=== PATIENT | female | born 1940 | race Caucasian/White ===

== ENCOUNTER → 2018-10-04 | Outpatient (CLI) | payer MEDICARE, OTHER ==
[~2018-10-04] MED LIST: ASPIR 8181 M1 PO; ATORVASTATIN CA40 MG PO; BRILINTA90 MG PO; COREG6.25 MG PO; LISINOPRIL2.5 MG PO; NEURONTIN 300300 M1 PO; TRAZODONE 150150 M1 PO
--- NOTE | 2018-10-04 17:15 | 2DMMODE ---
[place] [address] 2 D/M-MODE ECHOCARDIOGRAM Name: ALISSON WARNER Room: [facility]#: [id number] Admission: 10/04/18 Attend Phys: Rad Robertson, Discharge: Date of : 40 Date of Service: 10/04/18 1715 Report #: [id number] THIS REPORT FOR: //name// APPROVED REPORT Study performed: 10/04/2018 09:56:37 EXAM: Comprehensive 2D, Doppler, and color-flow Echocardiogram Patient Location: Out-Patient Status: routine BSA: 1.64 HR: 86 bpm BP: 140/382 mmHg Rhythm: NSR Other Information Study Quality: Good Indications Cardiomyopathy 2D Dimensions IVSd: 11.24 (7-11mm) LVOT Diam: 20.31 (18-24mm) LVDd: 43.88 mm PWd: 10.40 (7-11mm) Ascending Ao: 25.05 (22-36mm) LVDs: 37.72 (25-40mm) Aortic Root: 24.62 mm Volumes Left Atrial Volume (Systole) LA ESV Index: 21.30 mL/m2 Aortic Valve AoV Peak Lázaro.: 0.92 m/s AO Peak Gr.: 3.36 mmHg LVOT Max P.34 mmHg AO Mean Gr.: 1.97 mmHg LVOT Mean P.10 mmHg LVOT Max V: 0.76 m/s AO V2 VTI: 17.55 cm LVOT Mean V: 0.48 m/s ALEXEY (VTI): 2.65 cm2 LVOT V1 VTI: 14.38 cm AI [place]: 2.46 m/s2 AI PHT: 456.40 ms Mitral Valve E/A Ratio: 0.95 [place] [address] 2 D/M-MODE ECHOCARDIOGRAM Name: ALISSON WARNER Room: [facility]#: [id number] Admission: 10/04/18 Attend Phys: Rad Robertson, Discharge: Date of : 40 Date of Service: 10/04/18 1715 Report #: [id number] MV Decel. Time: 171.97 ms MV E Max Lázaro.: 0.58 m/s MV PHT: 49.87 ms MVA (PHT): 4.41 cm2 TDI E/Lateral E': 9.67 E/Medial E': 9.67 Medial E' Lázaro.: 0.06 m/s Lateral E' Lázaro.: 0.06 m/s Pulmonary Valve PV Peak Lázaro.: 0.80 m/s PV Peak Gr.: 2.56 mmHg Tricuspid Valve RAP Estimate: 5.00 mmHg TR Peak Gr.: 30.16 mmHg RVSP: 35.00 mmHg PA Pressure: 35.00 mmHg Left Ventricle The left ventricle is normal size. There is akinesis of the mid to apical anterior anteroseptal and apical william. There is normal left ventricular wall thickness. Left ventricular systolic function is moderately decreased. LVEF is 35-40%. Grade I - abnormal relaxation pattern. Right Ventricle The right ventricle is normal size. The right ventricular systolic function is normal. Atria The left atrium size is normal. The right atrium size is normal. Aortic Valve The aortic valve is normal in structure. Moderate aortic regurgitation. There is no aortic valvular stenosis. Mitral Valve The mitral valve is normal in structure. Mild mitral regurgitation. No evidence of mitral valve stenosis. Tricuspid Valve The tricuspid valve is normal in structure. There is no tricuspid valve regurgitation noted[place] [address] 2 D/M-MODE ECHOCARDIOGRAM Name: ALISSON WARNER Room: [facility]#: [id number] Admission: 10/04/18 Attend Phys: Rad Robertson, Discharge: Date of : 40 Date of Service: 10/04/18 1715 Report #: [id number] The pulmonary valve is normal in structure. There is no pulmonic valvular regurgitation. Great Vessels The aortic root is normal in size. IVC is normal in size and collapses >50% with inspiration. Pericardium There is no pericardial effusion. <Conclusion> The left ventricle is normal size. There is normal left ventricular wall thickness. Left ventricular systolic function is moderately decreased. LVEF is 35-40%. Grade I - abnormal relaxation pattern. There is akinesis of the mid to apical anterior anteroseptal and apical william. Moderate aortic regurgitation. Mild mitral regurgitation. IVC is normal in size and collapses >50% with inspiration. <ELECTRONICALLY SIGNED> By: Rad Robertson MD, [facility] 10/04/181714 14 14 Rad Robertson MD, FACC /INF
== END ==
LOC: M.CRD 09:48
DX: I08.0 Rheumatic disorders of both mitral and aortic valves (principal); I25.5 Ischemic cardiomyopathy; Z88.8 Allergy status to other drugs, medicaments and biological substances; Z88.0 Allergy status to penicillin; Z88.2 Allergy status to sulfonamides

== ENCOUNTER 2020-06-19 08:57 | Observation (INO) | payer MEDICARE, OTHER ==
[2020-06-19] VITALS (15 sets, daily range): BP systolic 141–178; BP diastolic 62–88
[~2020-06-19] VITALS: Ht 167.6 cm; Wt 58.5 kg
--- NOTE | ~2020-06-19 | H ---
[address] [address] HISTORY AND PHYSICAL Name: ALISSON WARNER Room: [address] Jung M.RAshli#: [id number] Admission: 06/19/20 Attend Phys: Rad Robertson MD Discharge: 06/20/20 Date of : 40 Report #: [id number] THIS REPORT FOR: //name// cc: Toño Nation MD, Bruce D. MD ~ Please refer to the History and Physical performed in the physician's office. By: [id number] Records Staff [facility] /KULDEEP
[2020-06-19 09:59] LABS: HEMATOCRIT 43.2 % (37.0-47.0); HEMOGLOBIN 14.5 gm/dL (12.0-15.0); MCH 30.4 pg (26.0-34.0); MCHC 33.5 g/dL (28.0-37.0); MCV 90.5 fL (80.0-100.0); MPV 8.3 fl. (7.2-11.1); RBC 4.78 mil/uL (4.20-5.00); RDW-CV 13.6 % (10.5-14.5); WBC 4.7 thou/uL (4.0-11.0)
[2020-06-19 10:04] LABS: ANION GAP 5 mmol/L (7-16); BUN 15 mg/dL (7-18); CALCIUM 8.8 mg/dL (8.5-10.1); CHLORIDE 101 mmol/L (98-107); CO2 32 mmol/L (21-32); CREATININE 0.8 mg/dL (0.6-1.3); GLUCOSE 103 mg/dL (70-99); POTASSIUM 3.7 mmol/L (3.5-5.1); SODIUM 138 mmol/L (136-145)
[2020-06-19 10:08] LABS: ALBUMIN 3.8 g/dL (3.4-5.0); ALKALINE PHOSPHATASE 99 U/L (46-116); CHOLESTEROL 184 mg/dL (<200); HDL CHOLESTEROL 57 mg/dL (>40); LDL CHOLESTEROL 115 mg/dL (<100); SGOT 24 U/L (15-37); SGPT 28 U/L (30-65); TC:HDL 3.2 Ratio (Not establshd); TOTAL BILIRUBIN 0.5 mg/dL (<0.1-1.0); TOTAL PROTEIN 7.5 g/dL (6.4-8.2); TRIGLYCERIDE 61 mg/dL (<150); VLDL 12 mg/dL (<40)
[2020-06-19 10:11] LABS: SERUM ASSESSMENT Clear
[2020-06-19 10:36] LABS: APTT 26.8 Seconds (25.0-31.3); PROTIME 10.2 Seconds (9.20-11.50)
--- NOTE | 2020-06-19 16:15 | EKG ---
[place] [address] ELECTROCARDIOGRAM REPORT Name: ALISSON WARNER Room: [address] M.R.#: [id number] Admission: 06/19/20 Attend Phys: Rad Robertson, Discharge: Date of : 40 Date of Service: 06/19/20 1343 Report #: [id number] THIS REPORT FOR: //name// [facility] Test Date: 2020-06-19 Test Time: 13:43:47 Pat Name: ALISSON WARNER Department: Room: [facility] Gender: F Shrimper: : 1940 Requested By: Rad Robertson Order Number: [id number] Reading MD: Kyler Ludwig Measurements Intervals [place] Rate: 94 P: 87 WV: 131 QRS: 82 QRSD: 93 T: 235 QT: 387 QTc: 485 Interpretive Statements Sinus rhythm Borderline right axis deviation Consider left ventricular hypertrophy Abnormal T, consider ischemia, most prominent over anterolateral precordium Compared to ECG 03/26/2017 08:15:03 T-wave abnormality persists Possible ischemia persists Sinus tachycardia no longer present Ventricular premature complex(es) no longer present Myocardial infarct finding still suggested Electronically Signed On 06-19-2020 16:15:35 BEATER ROOM SUPERVISOR by Kyler Ludwig [email or web address] <ELECTRONICALLY SIGNED> By: Kyler Ludwig MD, [facility] 06/19/20 1615 1343 1343 Kyler Ludwig MD, [facility] /EPI
--- NOTE | 2020-06-19 21:10 | NUR ---
[id number] CARES ASSUMED. PT HAS REMAINED ALERT, ORIENTED AND COOPERATIVE. REMAINED ON BEDREST POST CARDIAC CATH. GROIN DRESSING RIGHT SIDE HAS REMAINED DRY AND INTACT. PEDAL PULSES 2+. PT HAS NO C/O PAIN OR DISTESS. REPORT AND CARES TO CASE ADVOCATE
[2020-06-20] VITALS (8 sets, daily range): BP systolic 135–143; BP diastolic 66–71
[2020-06-20 05:15] LABS: HEMATOCRIT 39.2 % (37.0-47.0); MCH 29.9 pg (26.0-34.0); MCHC 33.3 g/dL (28.0-37.0); MCV 89.9 fL (80.0-100.0); MPV 8.6 fl. (7.2-11.1); RBC 4.36 mil/uL (4.20-5.00); RDW-CV 13.7 % (10.5-14.5); WBC 9.5 thou/uL (4.0-11.0)
[2020-06-20 05:59] LABS: ALBUMIN 3.1 g/dL (3.4-5.0); CALCIUM 8.2 mg/dL (8.5-10.1); CREATININE 0.8 mg/dL (0.6-1.3); POTASSIUM 3.4 mmol/L (3.5-5.1); TOTAL BILIRUBIN 0.9 mg/dL (<0.1-1.0); TOTAL PROTEIN 6.4 g/dL (6.4-8.2)
--- NOTE | 2020-06-20 07:51 | NUR ---
ASSUMED PT CARE AT APPROX 1930. PT IS AWAKE AND ORIENTED X4. PT IS TRACING SR ON THE LEAD WEB APPLICATION DEVELOPER. PT WAS NOT ABLE TO GET UP UNTIL 2000H, RAISED HEMATOMA NOTICED AT APPROX 3-4cm DIAMETER AT APPROX 2330, 2LB SAND BAG PLACED ON GROIN AND PT IS MAINTAINED ON BEDREST. SITE IS CLOSELY MONITORED, IS SOFTER THIS AM. REPORT GIVEN TO ISAIAS MORAN
--- NOTE | 2020-06-20 10:15 | CARD ---
[facility] [address] [place] [address] CARDIAC CATH REPORT Name: ALISSON WARNER Room: [address] M.R.#: [id number] Admission: 06/19/20 Attend Phys: Rad Robertson MD Discharge: Date of : 40 Report #: [id number] THIS REPORT FOR: //name// cc: Toño Nation MD, Bruce D. MD ~ APPROVED REPORT Study performed: 06/19/2020 10:20:59 Patient Details Patient Status: Out-Patient Room #: The patient is a 80 year-old female Event Personnel Rad Robertson Senior Pl Sql Developer, Kyler Ludwig Retail Zone Specialist, Majo Jama RN Assembler Bicycle, Kay Mosley RN Monitor, Jose E Perez FIRE SUPPORT SPECIALIST Scrub Procedures Performed Art Access - R femoral artery* Left Heart Cath w/or w/o Coronaries LHC DONOVAN Place w/wo Plasty Single RAMUS Inter DONOVAN Place w/wo Plasty Single LAD Hemostasis w/ Angioseal Indication Unstable angina Risk Factors Hypercholesterolemia Procedure Narrative The patient was brought electively to the Cardiac Catheterization Laboratory and was prepped and draped in a sterile manner. The right femoral was infiltrated with subcutaneous anesthesia. A [place] 6 FR sheath was inserted into the . Coronary angiography was performed using coronary diagnostic catheters. The right coronary system was accessed and visualized with a JR4 6fr catheter. The left coronary system was accessed and visualized with a JL4 6fr catheter. The left ventricle was accessed and visualized with a PC: Pig 6fr catheter. Left ventricular/Aortic Valve gradient assessed via catheter pullback. Pre-demployment femoral angiogram was performed . Closure device was deployed with a 6 Fr Angioseal. The patient tolerated the procedure well and there were no complications associated with the procedure. There was no hematoma. Intraoperative [place] [address] CARDIAC CATH REPORT Name: ALISSON WARNER Room: [address] M.R.#: [id number] Admission: 06/19/20 Attend Phys: Rad Robertson MD Discharge: Date of : 40 Report #: [id number] Sedation start time: 11:03 Case end Time: 12:05 Fentanyl 50 mcg Versed 1 mg Fluoro Time: 11.7 minutes Dose: DAP 61088 cGycm2 1808 mGy Contrast Type and Amount: Visipaque 300 ml Diagnostic Cath Left Main 0% narrowing LAD 30% ostial LAD narrowing with 75% mid vessel stenosis Circumflex 30% proximal narrowing with 60% focal mid circumflex stenosis Right Coronary Dominant vessel with 30% proximal and 50% mid vessel narrowing Ramus Prominent vessel with 80% irregular proximalmid vessel stenosis Left Ventriculography The left ventricle is normal in size with Decreased contractility. The left ventricular ejection fraction is estimated to be 35-40%. Left ventricular wall motion abnormalities are present. There is no mitral insufficiency. Anteroapical akinesis is noted on left ventriculography Hemodynamics The aortic pressure is 153/64 mmHg with a mean of 100 mmHg. The left ventricular pressure is 160/11 mmHg with a mean of mmHg. The left ventricular end diastolic pressure is 32 mmHg. There was no gradient across the aortic valve upon pullback. PCI Technique Lesion Anticoagulation was achieved with Angiomax. Percutaneous coronary intervention was performed on the ramus intermedius segment. The lesion stenosis prior to intervention was 80% with ARLET 3 flow. A 6F XB LAD 3.5 Guide Catheter was used to engage the ostium. A IG: BMW 190cm Interventional Guidewire was used to cross the lesion. BALLOON DILATION A Balloon catheter Trek RX 2.5 X 20 was inserted and inflated up to 10.00atm for 17seconds. Additional Inflation: 16.00atm for 14seconds. Additional Inflation: 12.00atm for 11seconds. STENT DEPLOYMENT A drug-eluting stent [place] RX stent [id number] [place] [address] CARDIAC CATH REPORT Name: ALANAALISSON DESIREE Room: [address] Jung M.R.#: [id number] Admission: 06/19/20 Attend Phys: Rad Robertson MD Discharge: Date of : 40 Report #: [id number] inflated up to 10.00atm for 9seconds. Additional Inflation: 14.00atm for 7seconds. Additional Inflation: 16.00atm for 7seconds. POST STENT DEPLOYMENT BALLOON DILATION A Balloon catheter [place] Trek RX 3.0 X 15 was inserted and inflated up to 14.00atm for 9seconds. Additional Inflation: 16.00atm for 7seconds. Additional Inflation: 14.00atm for 7seconds. Final angiography reveals 0 % stenosis with ARLET flow. PCI Technique Lesion 2 Percutaneous Coronary Intervention was performed on the mid left anterior descending artery segment. The lesion stenosis prior to intervention was 75% with ARLET 3 flow. Stent Deployment A drug-eluting stent [place] RX Stent 2.5X8mm was inserted and inflated up to 14.00atm for 8seconds. Additional Inflation: 16.00atm for 7seconds. Additional Inflation: 17.00atm for 6seconds. Final angiography reveals 0 % stenosis with ARLET 3 flow. Conclusion 1. Significant multivessel coronary artery disease characterized by the following: A 30% proximal with 75% mid LAD stenosis B prominent ramus intermedius with irregular 80% proximalmid vessel stenosis C nondominant circumflex with 30% proximal and 60% focal mid vessel stenosis D large dominant right coronary artery with 30% proximal and 50% mid vessel narrowing 2. Moderate impairment in global LV function, estimated ejection fraction being 35 - 40% with anteroapical akinesis 4. Severe elevation of left ventricular end-diastolic systolic pressure at rest 5. Successful PCI with deployment of a drug-eluting stent at site of 80% irregular proximalmid ramus intermedius stenosis with 0% [place] [address] CARDIAC CATH REPORT Name: ALISSON WARNER Room: [address] Jung Vick#: [id number] Admission: 06/19/20 Attend Phys: Rad Robertson MD Discharge: Date of : 40 Report #: [id number] residual narrowing and ARLET-3 flow to the distal vessel 5. Successful PCI with deployment of a drug-eluting stent at the site of 75% mid LAD stenosis with 0% residual narrowing and ARLET-3 flow to the distal vessel Recommendations Cardiac Risk Reduction Program Aggressive Medical Therapy Medications Administered Aspirin (any) Prasugrel Diagnostic Cath Approved by: Rad Robertson MD Date/Time: 06/20/2020 10:13:38 <ELECTRONICALLY SIGNED> By: Kyler Ludwig MD, [facility] 06/20/205 Kyler Ludwig MD, FAC /INF
--- NOTE | 2020-06-20 10:55 | EKG ---
[place] [address] ELECTROCARDIOGRAM REPORT Name: ALISSON WARNER Room: [address] M.R.#: [id number] Admission: 06/19/20 Attend Phys: Rad Robertson, Discharge: Date of : 40 Date of Service: 06/20/20 0859 Report #: [id number] THIS REPORT FOR: //name// [facility] Test Date: 2020-06-20 Test Time: 08:59:48 Pat Name: ALISSON WARNER Department: Room: [facility] Gender: F Business Strategist: : 1940 Requested By: Rad Robertson Order Number: [id number] Reading MD: Kyler Ludwig Measurements Intervals [place] Rate: 89 P: 80 NV: 123 QRS: 80 QRSD: 90 T: 183 QT: 377 QTc: 459 Interpretive Statements Sinus rhythm Probable LVH with secondary repol abnrm Prominent anterolateral ST-T abnormalities suggesting ischemia Compared to ECG 06/19/2020 13:43:[address]-T abnormality suggestive of ischemia persists Electronically Signed On 06-20-2020 10:55:17 ALL TERRAIN VEHICLE RACER by Kyler Ludwig [email or web address] <ELECTRONICALLY SIGNED> By: Kyler Ludwig MD, [facility] 06/20/20 1055 0859 0859 Kyler Ludwig MD, [facility] /EPI
[2020-06-20] MEDS ORDERED: EFFIENT10 MG PO (12:40)
--- NOTE | 2020-06-20 13:15 | NUR ---
Pt is A&O. Resides at home alone. Independent, but reports being weak for the past few weeks. No DME. Hx of HH. No hx of SNF. Pt has limited family support, but enough to assist if needed. Pt discharging to home today. Pt wants HH, with a NU and PT, faxed HH orders to [facility]. Pt's niece to provide dc transportation.
--- NOTE | 2020-06-25 09:01 | D ---
[facility] [address] [place] [address] DISCHARGE SUMMARY Name: ALISSON WARNER Room: [address] Jung Vick#: [id number] Admission: 06/19/20 Attend Phys: Rad Robertson MD Discharge: 06/20/20 Date of : 40 Report #: [id number] THIS REPORT FOR: //name// cc: Toño Nation MD, Bruce D. MD ~ CC: Toño Robertson INDICATION: Unstable angina. PROCEDURES DURING THE HOSPITALIZATION: Percutaneous coronary intervention with drug-eluting stent placement to the proximal ramus intermedius branch and the proximal left anterior descending coronary artery DISCHARGE DIAGNOSES: 1. Unstable angina. 2. Hyperlipidemia. 3. Hypertension. 4. Multiple medical intolerances. HOSPITAL COURSE: The patient was brought to the catheterization lab with complaints of increasing chest pain consistent with angina. On catheterization, she was found to have a large intermediate ramus branch with a 70% lengthy proximal stenosis for which she had a 34 mm x 2.75 mm drug-eluting stent placed with excellent result. The patient had a focal stenosis in the proximal LAD for which she had 2.75 x 8 mm stent placed. The patient tolerated the procedure well without complication. DISCHARGE MEDICATIONS: 1. Effient 10 mg daily. 2. Carvedilol 6.25 mg b.i.d. 3. Trazodone 50 mg each day at bedtime p.r.n. DISPOSITION: Follow up in the Cardiology office in 4 weeks. <ELECTRONICALLY SIGNED> By: Rad Robertson MD, FACC 06/25/20 0901 1257 1322Micrd Robertson MD, FACC /nt
== END 2020-06-20 14:30 | disposition home health service (06) ==
LOC: M.CL 08:57 → M.TBA-CV 12:01 → M.2W 13:58
PROVIDERS: ADMIT Internal Medicine Cardiovascular Disease; ATTEND Internal Medicine Cardiovascular Disease
DX: I20.0 Unstable angina (principal); E78.5 Hyperlipidemia, unspecified; I10 Essential (primary) hypertension; Z00.8 Encounter for other general examination; E78.00 Pure hypercholesterolemia, unspecified

== ENCOUNTER 2020-10-23 19:01 | Inpatient (IN) | payer MEDICARE, OTHER ==
[~2020-10-23] VITALS: Ht 167.6 cm; Wt 61.0 kg
[~2020-10-23 19:01] MED LIST changes: +EFFIENT10 MG PO
[2020-10-23 19:07] VITALS: BP 186/106
[2020-10-23 19:23] LABS: ABSOLUTE EOSINOPHILS 0.1 thou/uL (0.0-0.7); ABSOLUTE LYMPHOCYTES 1.6 thou/uL (0.8-5.3); ABSOLUTE MONOCYTES 0.7 thou/uL (0.0-1.2); ABSOLUTE NEUTROPHILS 4.8 thou/uL (1.6-8.1); BASOPHILS 0.6 %; EOSINOPHILS 1.1 %; HEMATOCRIT 41.6 % (37.0-47.0); HEMOGLOBIN 13.8 gm/dL (12.0-15.0); LYMPHOCYTES 22.9 %; MCH 30.1 pg (26.0-34.0); MCHC 33.2 g/dL (28.0-37.0); MCV 90.8 fL (80.0-100.0); MONOCYTES 9.1 %; MPV 8.7 fl. (7.2-11.1); NUCLEATED RBCS 0 /100WBC; PLATELET COUNT* 308 thou/uL (150-400); POLYS 66.3 %; RBC 4.58 mil/uL (4.20-5.00); RDW-CV 14.1 % (10.5-14.5); WBC 7.2 thou/uL (4.0-11.0)
[2020-10-23] MEDS ORDERED: TRAZODONE HCL50 MG PO (19:26)
[2020-10-23 19:34] LABS: APTT 25.9 Seconds (25.0-31.3); CALCIUM 8.9 mg/dL (8.5-10.1); CREATININE 0.9 mg/dL (0.6-1.3); POTASSIUM 3.3 mmol/L (3.5-5.1); PROTIME 10.3 Seconds (9.20-11.50)
[2020-10-23 19:48] LABS: ALBUMIN 3.9 g/dL (3.4-5.0); CK-MB MASS 1.7 ng/mL (<0.5-3.6); MAGNESIUM 2.1 mg/dL (1.8-2.4); TOTAL BILIRUBIN 0.5 mg/dL (<0.1-1.0)
[2020-10-23 22:21] VITALS: BP 162/93
[2020-10-23 22:30] VITALS: BP 153/81
[2020-10-23 23:00] VITALS: BP 151/78
[2020-10-24] VITALS (37 sets, daily range): BP systolic 120–159; BP diastolic 67–94
[2020-10-24 06:18] LABS: CREATININE 0.8 mg/dL (0.6-1.3); POTASSIUM 4.3 mmol/L (3.5-5.1)
--- NOTE | 2020-10-24 09:36 | EKG ---
[place] [address] ELECTROCARDIOGRAM REPORT Name: ALISSON WARNER I Room: [address] ADM IN M.R.#: [id number] Admission: 10/23/20 Attend Phys: Mauro Rubio, Discharge: Date of : 40 Date of Service: 10/23/20 1904 Report #: [id number] THIS REPORT FOR: //name// [facility] ED Test Date: 2020-10-23 Test Time: 19:04:49 Pat Name: ALISSON WARNER Department: Room: [facility] Gender: F Sanitation Superintendent: : 1940 Requested By: Eric Whyte Order Number: [id number] MD: Vinnie Larson Measurements Intervals [place] Rate: 92 P: 82 NV: 130 QRS: 83 QRSD: 96 T: 171 QT: 359 QTc: 445 Interpretive Statements Sinus rhythm Ventricular premature complex Borderline right axis deviation Probable LVH with secondary repol abnrm Compared to ECG 06/20/2020 08:59:48 Ventricular premature complex(es) now present Electronically Signed On 10-24-2020 9:36:34 CDT by Vinnie Larson [email or web address] <ELECTRONICALLY SIGNED> By: Vinnie Larson MD, FACC 10/24/20 0936 1904 1904 Vinnie Larson MD, FAC /EPI
--- NOTE | 2020-10-24 11:10 | EKG ---
[place] [address] ELECTROCARDIOGRAM REPORT Name: ALISSON WARNER I Room: [address] ADM IN M.R.#: [id number] Admission: 10/23/20 Attend Phys: Mauro Rubio, Discharge: Date of : 40 Date of Service: 10/23/202000 Report #: [id number] THIS REPORT FOR: //name// [facility] ED Test Date: 2020-10-23 Test Time: 20:01:33 Pat Name: ALISSON WARNER Department: Room: [address] Gender: F Treatment Manager: CLEVE : 1940 Requested By: Eric Whyte Order Number: [id number] Reading MD: Vinnie Larson Measurements Intervals [place] Rate: 96 P: 78 DC: 130 QRS: 86 QRSD: 96 T: 177 QT: 358 QTc: 453 Interpretive Statements Sinus rhythm Consider left atrial enlargement Borderline right axis deviation Probable LVH with secondary repol abnrm Anterior ST elevation, probably due to LVH Compared to ECG 10/23/2020 19:04:49 Ventricular premature complex(es) no longer present Electronically Signed On 10-24-2020 11:10:25 CDT by Vinnie Larson [email or web address] <ELECTRONICALLY SIGNED> By: Vinnie Larson MD, FAC 10/24/20 1110 00 00 Vinnie Larson MD, [facility] /EPI
--- NOTE | 2020-10-24 13:24 | EKG ---
[place] [address] ELECTROCARDIOGRAM REPORT Name: ALANAALISSON I Room: [address] ADM IN M.R.#: [id number] Admission: 10/23/20 Attend Phys: Mauro Rubio, Discharge: Date of : 40 Date of Service: 10/24/20 1114 Report #: [id number] THIS REPORT FOR: //name// [facility] Test Date: 2020-10-24 Test Time: 11:14:18 Pat Name: ALISSON WARNER Department: Room: [address] Gender: F Utility Service Worker: LUI : 1940 Requested By: Vinnie Larson Order Number: [id number] Reading MD: Vinnie Larson Measurements Intervals [place] Rate: 85 P: 79 NE: 124 QRS: 88 QRSD: 90 T: 149 QT: 357 QTc: 425 Interpretive Statements Sinus rhythm Borderline right axis deviation Probable LVH with secondary repol abnrm Compared to ECG 10/23/2020 20:01:33 no change Electronically Signed On 10-24-2020 13:24:03 CDT by Vinnie Larson [email or web address] <ELECTRONICALLY SIGNED> By: Vinnie Larson MD, [facility] 10/24/20 1324 1114 1114 Vinnie Larson MD, [facility] /EPI
--- NOTE | 2020-10-24 14:02 | CARD ---
[address] [address] CARDIAC CATH REPORT Name: ALISSON WARNER I Room: [address] IN [facility].#: [id number] Admission: 10/23/20 Attend Phys: Mauro Rubio MD Discharge: Date of : 40 Report #: [id number] THIS REPORT FOR: cc: [facility] MD, Bruce D. MD ~ Vinnie Larson MD [facility] APPROVED REPORT Study performed: 10/24/2020 09:12:26 Patient Details Patient Status: In-Patient Room #: The patient is a 80 year-old female Event Personnel Vinnie Larson Puller Through, Majo Jama RN Technician'S Helper, Angie Christianson RTR Scrub, Jose E Perez CASE PACKER Monitor Procedures Performed Art Access - R radial artery Left Heart Cath w/or w/o Coronaries [id number] [facility] Place w/wo Plasty Single RCA [id number] Indication Abnormal ECG, Non-STEMI , Atypical chest pain Risk Factors Hypercholesterolemia, Coronary Artery Disease Previous Procedures/Diagnoses Previous PCI, Previous ND Admission/Lab Medications/Medications given during procedure Glycoprotein IllbIlla Inhibitors, Heparin Unfract. Procedure Narrative The patient was brought electively to the Cardiac Catheterization Laboratory and was prepped and draped in a sterile manner. The right wrist was infiltrated with 2% Lidocaine subcutaneous anesthesia. A 6 FR sheath was inserted into the right radial artery. Coronary angiography was performed using coronary diagnostic catheters. The right coronary system was accessed and visualized with a JR4 catheter. The left coronary system was accessed and visualized with a [facility] [address] [place] [address] CARDIAC CATH REPORT Name: ALISSON WARNER I Room: [address]#: [id number] Admission: 10/23/20 Attend Phys: Mauro Rubio MD Discharge: Date of : 40 Report #: [id number] JL4 catheter. The left ventricle was accessed and visualized with a PIG Tail catheter. Left ventricular/Aortic Valve gradient assessed via catheter pullback. Left ventriculogram was performed in GILL projection. Closure device was deployed with a 6 Fr Vasc-Band Reg 24cm. The patient tolerated the procedure well and there were no complications associated with the procedure. There was no hematoma. Intraoperative Conscious Sedation Sedation start time: 951 Case end Time: 1033 Fentanyl 25 mcg Versed 2 mg Fluoro Time: 5.5 minutes Dose: DAP 45577 cGycm2 582 mGy Contrast Type and Amount: Visipaque 120 ml Coronary Angiography The patient's coronary anatomy is co- dominant. Diagnostic Cath Left Main 30% mid stenosis LAD stent in the mid lad had 0% stenosis. Distal LAD had a 60% stenosis Circumflex 40% mid stenosis and a 80% distal stenosis prior to the takeoff of a small posterolateral branch. Right Coronary 30% proximal stenosis. 80% stenosis in the mid RCA after the RV branch Ramus proximal and midstent had 0% restenosis. Medium sized proximal branch off the ramus artery had an ostial 90% and mid 90% stenosis. Small second branch off the ramus had an ostial 90% stenosis. Left Ventriculography The left ventricle is mildly dilated in size with abnormal contractility. The left ventricular ejection fraction is estimated to be 25-30%. Left ventricular wall motion abnormalities are present. There is 1+ mitral insufficiency. akinesis noted of the mid and distal anterolateral wall and apex. Hemodynamics The aortic pressure is 114/62 mmHg with a mean of 75 mmHg. The left ventricular pressure is 115/10 mmHg with a mean of mmHg. The left ventricular end diastolic pressure is 14 mmHg. There was no gradient across the aortic valve upon pullback. Pull[place] [address] CARDIAC CATH REPORT Name: ALISSON WARNER Samantha Room: [address] IN [facility]#: [id number] Admission: 10/23/20 Attend Phys: Mauro Rubio MD Discharge: Date of : 40 Report #: [id number] ventricle to the aorta revealed no gradient across the aortic valve. PCI Technique Lesion Anticoagulation was achieved with Heparin. patient was on IV aggrastat infustion Percutaneous coronary intervention was performed on the mid right coronary artery. The lesion stenosis prior to intervention was 80% with ARLET 3 flow. A Launcher JR 4 6FR Guide Catheter was used to engage the right ostium. A IG: BMW 190cm Interventional Guidewire was used to cross the lesion. BALLOON DILATION A Balloon catheter NC Trek RX 2.5 X 8 was inserted and inflated up to 18.00atm for 31seconds. Repeat angiography revealed the following post-dilatation results: 50% stenosis. Additional Inflation: 18.00atm for 18seconds. STENT DEPLOYMENT A drug-eluting stent Jose RX Stent 3.0X15mm was inserted and inflated up to 20.00atm for 10seconds. Repeat angiography revealed the following post-stent deployment results: 0% stenosis. Additional Inflation: 21.00atm for 9seconds. Final angiography reveals 0 % stenosis with ARLET 3 flow. Conclusion 1. no restenosis noted of stents in the mid LAD and proximal ramus branch. 2. 80% stenosis noted in the mid RCA 3. LVEF 25-30% 4. successful placement of a drug eluting stent in the mid RCA Recommendations Cardiac Rehabilitation Referral Aggressive Medical Therapy Medications Administered Clopidogrel <ELECTRONICALLY SIGNED> By: Vinnie Larson MD, [facility] 10/24/20 1402 1402 1402Daviirvin Larson MD, FAC /INF
[2020-10-25] VITALS (9 sets, daily range): BP systolic 116–144; BP diastolic 66–80
[2020-10-25 04:46] LABS: ABSOLUTE EOSINOPHILS 0.1 thou/uL (0.0-0.7); ABSOLUTE LYMPHOCYTES 1.2 thou/uL (0.8-5.3); ABSOLUTE MONOCYTES 0.9 thou/uL (0.0-1.2); ABSOLUTE NEUTROPHILS 4.9 thou/uL (1.6-8.1); BASOPHILS 0.7 %; EOSINOPHILS 1.3 %; HEMATOCRIT 38.2 % (37.0-47.0); HEMOGLOBIN 12.8 gm/dL (12.0-15.0); LYMPHOCYTES 16.7 %; MCH 30.1 pg (26.0-34.0); MCHC 33.5 g/dL (28.0-37.0); MCV 89.8 fL (80.0-100.0); MONOCYTES 12.5 %; MPV 8.7 fl. (7.2-11.1); NUCLEATED RBCS 0 /100WBC; PLATELET COUNT* 234 thou/uL (150-400); POLYS 68.8 %; RBC 4.25 mil/uL (4.20-5.00); RDW-CV 14.1 % (10.5-14.5); WBC 7.1 thou/uL (4.0-11.0)
[2020-10-25 05:08] LABS: ANION GAP 5 mmol/L (7-16); BUN 18 mg/dL (7-18); CHLORIDE 105 mmol/L (98-107); CHOLESTEROL 139 mg/dL (<200); CO2 31 mmol/L (21-32); GLUCOSE 106 mg/dL (70-99); HDL CHOLESTEROL 52 mg/dL (>40); LDL CHOLESTEROL 78 mg/dL (<100); SODIUM 141 mmol/L (136-145); TC:HDL 2.7 Ratio (Not establshd); TRIGLYCERIDE 45 mg/dL (<150); VLDL 9 mg/dL (<40)
[2020-10-25 05:09] LABS: SERUM ASSESSMENT CLEAR
[2020-10-25 05:10] LABS: TROPONIN-I LEVEL 18.18 ng/mL (<0.06)
--- NOTE | 2020-10-25 09:55 | CON ---
[facility] [address] [place] [address] CONSULTATION Name: ALISSON WARNER I Room: [address] IN M.R.#: [id number] Admission: 10/23/20 Attend Phys: Mauro Rubio MD Discharge: Date of : 40 Report #: [id number] THIS REPORT FOR: cc: Toño Nation MD, Bruce D. MD ~ Vinnie Larson MD [facility] DATE OF SERVICE: 10/24/2020 CARDIOLOGY CONSULTATION HISTORY OF PRESENT ILLNESS: The patient is an 80-year-old single white female who I was asked to see in the hospital after she came in complaining of neck pain. The patient apparently presented in 2016 as an anterior myocardial infarction. She had stents placed in her LAD. She has been followed by my partner, Dr. Robertson. She has multiple medical intolerances in the past. Her last cardiac catheterization was last done in June here at [place] by Dr. Ludwig. This showed a 75% stenosis in the mid LAD. Ejection fraction of 35%. She then had drug-eluting stents placed in the ramus branch and LAD. The patient had a hard time tolerating Effient, so she took it for 3 months and stopped taking it. She does not take aspirin because of side effects. She has been intolerant of multiple medications including beta-blockers, ARB, calcium blockers. She saw a nurse practitioner, Acacia Marino, in July. The patient states she was doing well until yesterday, she was at home working. She suddenly felt a pain in her arms and neck and left arm. She took a nitroglycerin, did not seem to help. She called EMS and brought here to [place] for further evaluation and treatment. She does have occasional dyspnea on exertion, but no palpitation or syncope. She does complain of having no energy. She has had no fever, cough or bleeding. PAST MEDICAL HISTORY: Otherwise, she has had previous tonsillectomy. She has no history of hypertension, hyperlipidemia and diabetes. She has a history of anxiety. ALLERGIES: SHE HAS INTOLERANCE TO MULTIPLE MEDICATIONS. FAMILY HISTORY: She notes her mother and father both had heart disease. SOCIAL HISTORY: She is , lives in [place], [place]. No smoking or alcohol abuse. REVIEW OF SYSTEMS: No history of stroke, asthma, GI bleeding, liver disease, kidney disease or cancer. She sees a psychologist for anxiety. [place] [address] CONSULTATION Name: ALISSON WARNER I Room: [address]#: [id number] Admission: 10/23/20 Attend Phys: Mauro Rubio MD Discharge: Date of : 40 Report #: [id number] PHYSICAL EXAMINATION: GENERAL: Revealed an elderly female lying in bed. She appeared in no distress. VITAL SIGNS: She had a blood pressure of 130/70, pulse is 80, she is afebrile. HEENT: She was anicteric. Conjunctivae pink. Mucous membranes moist. NECK: Veins nondistended. No carotid bruits. CHEST: Clear to auscultation. NECK: Supple. CARDIOVASCULAR: Regular rate and rhythm, no murmur or rub. ABDOMEN: Soft. EXTREMITIES: Had no edema. Posterior tibial pulse 1+ bilaterally. SKIN: Cool and dry. NEUROLOGIC: Nonfocal. Her ECG when she arrived last night showed a sinus rhythm, nonspecific ST- and T-wave changes and this was compared to previous ECG done in June that actually showed no significant change. LABORATORY WORK: Sodium 140. Her troponin this morning is 16. Lipid profile in June, cholesterol 184, triglycerides 61, HDL 57, LDL 115. White blood cell count 7.2, hemoglobin 13.8. She had a chest x-ray last night that showed normal heart size, hyperinflated lung swartz. IMPRESSION AND RECOMMENDATIONS: 1. Non-ST elevation myocardial infarction. Recommend cardiac catheterization. 2. Previous stent. The patient cannot tolerate aspirin, Brilinta or Effient. 3. Anxiety disorder. 4. Cardiomyopathy. The patient cannot tolerate beta-blockers or ARBs. <ELECTRONICALLY SIGNED> By: Vinnie Larson MD, FACC 10/25/20 0955 0841 0902Vinnie Larson MD, FAC /nt
--- NOTE | 2020-10-25 10:20 | EKG ---
[place] [address] ELECTROCARDIOGRAM REPORT Name: ALISSON WARNER I Room: [address] IN M.R.#: [id number] Admission: 10/23/20 Attend Phys: Mauro Rubio, Discharge: Date of : 40 Date of Service: 10/25/20 0411 Report #: [id number] THIS REPORT FOR: //name// [facility] Test Date: 2020-10-25 Test Time: 04:11:05 Pat Name: ALISSON WARNER Department: Room: [facility] Gender: F Pharmacometrician: ADEOLA : 1940 Requested By: Vinnie Larson Order Number: [id number] Reading MD: Vinnie Larson Measurements Intervals [place] Rate: 63 P: 88 WV: 116 QRS: 83 QRSD: 87 T: 102 QT: 416 QTc: 426 Interpretive Statements Sinus rhythm Borderline short W[place] interval Anteroseptal infarct, age indeterminate Compared to ECG 10/24/2020 11:14:18 no change Electronically Signed On 10-25-2020 10:19:52 CDT by Vinnie Larson [email or web address] <ELECTRONICALLY SIGNED> By: Vinnie Larson MD, [facility] 10/25/20 1019 0411 0411 Vinnie Larson MD, [facility] /EPI
[2020-10-26 04:03] VITALS: BP 119/59
[2020-10-26 08:00] VITALS: BP 117/54
[2020-10-26] MEDS ORDERED: SPIRONOLACTONE25 MG PO (09:02)
[2020-10-26] MEDS ORDERED: CLOPIDOGREL75 MG PO (09:02)
[2020-10-26] MEDS ORDERED: ZETIA10 MG PO (09:02)
[2020-10-26] MEDS ORDERED: CILOSTAZOL 100100 M1 PO (09:02)
== END 2020-10-26 12:30 | disposition home health service (06) | DRG 246 ==
LOC: M.ERS 19:01 → M.ICU 20:52 → M.TBA-ER 20:52 → M.ICU 21:51 → M.2W 10-24 18:10
PROVIDERS: Family Medicine; Internal Medicine; ADMIT Internal Medicine; ATTEND Internal Medicine
PROC: 4A023N7 Measurement of Cardiac Sampling and Pressure, Left Heart, Percutaneous Approach (ICD-10-PCS; principal; 2020-10-24)
PROC: B211YZZ Fluoroscopy of Multiple Coronary Arteries using Other Contrast (ICD-10-PCS; principal; 2020-10-24)
PROC: 027034Z Dilation of Coronary Artery, One Artery with Drug-eluting Intraluminal Device, Percutaneous Approach (ICD-10-PCS; principal; 2020-10-24)
PROC: B215YZZ Fluoroscopy of Left Heart using Other Contrast (ICD-10-PCS; principal; 2020-10-24)
DX: I21.4 Non-ST elevation (NSTEMI) myocardial infarction (principal); I50.21 Acute systolic (congestive) heart failure; I16.1 Hypertensive emergency; I42.9 Cardiomyopathy, unspecified; M81.0 Age-related osteoporosis without current pathological fracture; E78.5 Hyperlipidemia, unspecified; E11.9 Type 2 diabetes mellitus without complications; F41.9 Anxiety disorder, unspecified; R53.82 Chronic fatigue, unspecified; I24.9 Acute ischemic heart disease, unspecified; Z20.822 Contact with and (suspected) exposure to COVID-19; T50.905A Adverse effect of unspecified drugs, medicaments and biological substances, initial encounter; E78.00 Pure hypercholesterolemia, unspecified; I11.0 Hypertensive heart disease with heart failure; Z79.899 Other long term (current) drug therapy; Z88.6 Allergy status to analgesic agent; Z88.1 Allergy status to other antibiotic agents; Z88.0 Allergy status to penicillin; Z88.2 Allergy status to sulfonamides; Z82.49 Family history of ischemic heart disease and other diseases of the circulatory system; Y92.89 Other specified places as the place of occurrence of the external cause; Z95.5 Presence of coronary angioplasty implant and graft

== ENCOUNTER 2021-03-12 19:10 | Inpatient (IN) | payer MEDICARE, OTHER ==
[~2021-03-12] VITALS: Ht 162.6 cm; Wt 56.7 kg
[2021-03-12] VITALS (12 sets, daily range): BP systolic 143–184; BP diastolic 69–97
--- NOTE | ~2021-03-12 | H ---
[place] [address] HISTORY AND PHYSICAL Name: ALISSON WARNER I Room: [address] IN M.R.#: [id number] Admission: 03/12/21 Attend Phys: Kyler Ludwig MD, Discharge: Date of : 40 Report #: [id number] THIS REPORT FOR: cc: Toño Nation MD, Bruce D. MD Holkins, John M. MD [facility] ~ ADMIT DATE: 03/12/2021 HISTORY OF PRESENT ILLNESS: The patient is an 80-year-old female with complex coronary artery disease, status post prior myocardial infarction and prior PCIs to the LAD, circumflex and right coronary artery. This afternoon, she developed chest discomfort, which was partially relieved by nitroglycerin and ultimately completely relieved by the time of her arrival in the ER. She did, however, demonstrated inferior and anterolateral ST-T changes suggesting ischemia and/or injury. She continued to note some dyspnea, but no chest discomfort at that time. She is intolerant to a number of medications including antiplatelet agents and had a brief course of prasugrel after her most recent PCI, but then discontinued it after 2 months. She has been on no antiplatelet therapy at all, as she is intolerant to aspirin, Brilinta, and most recently prasugrel. She denied having received clopidogrel in the past. She has underlying mild hypertension and mild hypercholesterolemia. She has been statin intolerant and also cannot tolerate Zetia. The only medicine she has been on is trazodone. PAST MEDICAL HISTORY: Remarkable for complex coronary disease and multiple medication intolerances including antiplatelet therapy. SOCIAL HISTORY: She is a nonsmoker. PHYSICAL EXAMINATION: GENERAL: Reveals a modestly distressed, anxious elderly female. VITAL SIGNS: Blood pressure 170/70, pulse rate is 74, respirations are 18 per minute. NECK: Jugular venous pressure is normal. CHEST: Clear. CARDIAC: Reveals normal first and second heart sounds with a soft systolic murmur. ABDOMEN: Soft. EXTREMITIES: Without edema with intact femoral, pedal, and radial pulses. LABORATORY DATA: EKG reveals inferior and anterolateral [place] [address] HISTORY AND PHYSICAL Name: ALISSON WARNER I Room: [address] IN [facility]#: [id number] Admission: 03/12/21 Attend Phys: Kyler Ludwig MD, Discharge: Date of : 40 Report #: [id number] ischemia or injury. IMPRESSION: 1. Acute coronary syndrome with minimal increase in troponin I 0.18. 2. Coronary artery disease status post prior myocardial infarction, and multivessel stenting. 3. Mild labile hypertension. 4. Mild hypercholesterolemia. 5. Multiple drug intolerance. RECOMMENDATIONS: In this context, I would recommend proceeding with cardiac catheterization given the persistence of chest pain and electrocardiographic abnormalities. This was undertaken and it revealed 30% distal left main coronary narrowing with a 75% mid to distal LAD in-stent narrowing. There was a 30%-40% proximal circumflex narrowing with 80% first marginal and 90% small second marginal narrowing. There was tandem 60% stenosis in the posterior division of the circumflex. The right coronary artery revealed 30% proximal narrowing with a widely patent midvessel stent. LV function was moderately impaired with an apical aneurysm and estimated ejection fraction of 35% with the proximal anterior wall and two-thirds of the inferior wall [place] normally. Left ventricular end diastolic pressure was 24 mmHg. Given the findings with no evidence for acute coronary occlusion, I did not proceed with PCI at this time. After careful discussion with the patient, I commenced antiplatelet therapy with clopidogrel. Aspirin was not utilized ____ intolerance and statin therapy has also not been tolerated and was commenced. She has not been tolerant of any of the usual medications we would utilize and I am commencing an antiplatelet therapy with clopidogrel as the only agent she has not exhibited intolerance to. The patient is transferred to the ICU. Heparin has been discontinued. She is on a modest dose of crystalloid to be infused for 5-6 hours. Critical care time is 40 minutes from 2100 hours to 2140 hours on 03/12/2021. By: 42 15Kyler Ludwig MD, FACC /nt
[~2021-03-12 19:10] MED LIST changes: +CILOSTAZOL 100100 M1 PO; +CLOPIDOGREL75 MG PO; +SPIRONOLACTONE25 MG PO; +TRAZODONE HCL50 MG PO; +ZETIA10 MG PO
[2021-03-12 19:45] LABS: ABSOLUTE BASOPHILS 0.1 thou/uL (0.0-0.2); ABSOLUTE LYMPHOCYTES 0.9 thou/uL (0.8-5.3); ABSOLUTE MONOCYTES 0.4 thou/uL (0.0-1.2); ABSOLUTE NEUTROPHILS 5.8 thou/uL (1.6-8.1); BASOPHILS 0.7 %; EOSINOPHILS 0.1 %; HEMATOCRIT 40.5 % (37.0-47.0); HEMOGLOBIN 13.5 gm/dL (12.0-15.0); MCH 29.9 pg (26.0-34.0); MCHC 33.3 g/dL (28.0-37.0); MCV 89.8 fL (80.0-100.0); MONOCYTES 5.6 %; MPV 8.6 fl. (7.2-11.1); NUCLEATED RBCS 0 /100WBC; PLATELET COUNT* 273 thou/uL (150-400); POLYS 81.6 %; RBC 4.51 mil/uL (4.20-5.00); RDW-CV 13.8 % (10.5-14.5); WBC 7.1 thou/uL (4.0-11.0)
[2021-03-12 19:57] LABS: CALCIUM 8.6 mg/dL (8.5-10.1); CREATININE 0.9 mg/dL (0.6-1.3); POTASSIUM 3.8 mmol/L (3.5-5.1)
[2021-03-12 20:00] LABS: PROTIME 10.7 Seconds (9.20-11.50)
[2021-03-12 20:08] LABS: ALBUMIN 3.8 g/dL (3.4-5.0); TOTAL BILIRUBIN 0.4 mg/dL (<0.1-1.0)
[2021-03-13] VITALS (24 sets, daily range): BP systolic 129–166; BP diastolic 65–99
[2021-03-13 01:42] LABS: HEMATOCRIT 39.8 % (37.0-47.0); HEMOGLOBIN 13.1 gm/dL (12.0-15.0); MCH 29.7 pg (26.0-34.0); MCHC 32.9 g/dL (28.0-37.0); MCV 90.4 fL (80.0-100.0); MPV 8.3 fl. (7.2-11.1); RBC 4.4 mil/uL (4.20-5.00); RDW-CV 13.7 % (10.5-14.5)
[2021-03-13 02:11] LABS: ALBUMIN 3.4 g/dL (3.4-5.0); ALKALINE PHOSPHATASE 85 U/L (46-116); ANION GAP 6 mmol/L (7-16); BUN 16 mg/dL (7-18); CALCIUM 8.7 mg/dL (8.5-10.1); CHLORIDE 106 mmol/L (98-107); CHOLESTEROL 160 mg/dL (<200); CO2 29 mmol/L (21-32); CREATININE 0.8 mg/dL (0.6-1.3); GLUCOSE 131 mg/dL (70-99); HDL CHOLESTEROL 52 mg/dL (>40); LDL CHOLESTEROL 98 mg/dL (<100); POTASSIUM 3.7 mmol/L (3.5-5.1); SGOT 25 U/L (15-37); SGPT 25 U/L (30-65); SODIUM 141 mmol/L (136-145); TC:HDL 3.1 Ratio (Not establshd); TOTAL BILIRUBIN 0.4 mg/dL (<0.1-1.0); TRIGLYCERIDE 53 mg/dL (<150); VLDL 11 mg/dL (<40)
[2021-03-13 02:12] LABS: SERUM ASSESSMENT Clear
--- NOTE | 2021-03-13 08:58 | CARD ---
[address] [address] CARDIAC CATH REPORT Name: ALISSON WARNER I Room: [address] IN [facility].#: [id number] Admission: 03/12/21 Attend Phys: Kyler Ludwig MD, Discharge: Date of : 40 Report #: [id number] THIS REPORT FOR: cc: Toño Nation MD, Bruce D. MD Holkins,Kyler Villar MD [facility] ~ APPROVED REPORT Study performed: 03/12/2021 20:05:20 Patient Details Patient Status: ED Room #: The patient is a 80 year-old female Event Personnel Angie Christianson RTR Scrub, Angie Christianson RTR Gregory, Tulio Arroyo RN RN, Kyler Ludwig Apartment Rental Agent Procedures Performed Left Heart Cath w/or w/o Coronaries [id number] [facility] Hemostasis w/ Mynx Indication Non-STEMI Risk Factors Hypercholesterolemia, Hypertension Previous Procedures/Diagnoses Previous PCI, Previous ME Admission/Lab Medications/Medications given during procedure Lidocaine Subcut 20 ml, Lidocaine Subcut 20 ml, Fentanyl IV 25 mcg, Plavix PO 300 mg Procedure Narrative The patient was brought emergently to the Cardiac Catheterization Laboratory and was prepped and draped in a sterile manner. The right femoral was infiltrated with 2% Lidocaine subcutaneous anesthesia. IV conscious sedation was used throughout procedure with appropriate monitoring and was performed in the presence of a registered nurse who was an independent trained observer other than the physician performing the procedure. A Ultimum 6 FR sheath [place] [address] CARDIAC CATH REPORT Name: ALISSON WARNER I Room: [address] IN ..#: [id number] Admission: 03/12/21 Attend Phys: Kyler Ludwig MD, Discharge: Date of : 40 Report #: [id number] right femoral artery. Coronary angiography was performed using coronary diagnostic catheters. The right coronary system was accessed and visualized with a Diagnostic JR4 6Fr catheter. The left coronary system was accessed and visualized with a Diagnostic JL4 6Fr catheter. The left ventricle was accessed and visualized with a Diagnostic Pigtail 6Fr catheter. Left ventricular/Aortic Valve gradient assessed via catheter pullback. Left ventriculogram was performed in JORGE L projection. Pre-demployment femoral angiogram was performed . Closure device was deployed with a 6 Fr Mynx. The patient tolerated the procedure well and there were no complications associated with the procedure. There was no hematoma. Intraoperative Conscious Sedation Sedation start time: 2029 Case end Time: 2100 Fentanyl 25 mcg Versed 1 mg Fluoro Time: 3.3 minutes Dose: DAP 94727 cGycm2 439.26 mGy Contrast Type and Amount: Visipaque 140 ml Coronary Angiography The patient's coronary anatomy is right dominant. Diagnostic Cath Left Main 20% distal narrowing LAD 40% mid with 60% distal in-stent narrowing; multiple stents deployed throughout the LAD Circumflex Prominent though nondominant vessel with 30% proximal narrowing tandem 60% posterior division narrowings and 80% tubular first marginal with 90% proximal second marginal stenosis Right Coronary Dominant vessel with 30% proximal narrowing widely patent mid right coronary stent Left Ventriculography The left ventricle is normal in size with Moderately decreased contractility. The left ventricular ejection fraction is estimated to be 35%. Left ventricular wall motion abnormalities are present. There is no mitral insufficiency. 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 Hemodynamics The aortic pressure is 173/77 mmHg with a mean of 101 mmHg. The left ventricular pressure is 161/7 mmHg with a mean of mmHg. The left ventricular end diastolic pressure is 26 [place] [address] CARDIAC CATH REPORT Name: ALISSON WARNER I Room: [address] IN ..#: [id number] Admission: 03/12/21 Attend Phys: Kyler Ludwig MD, Discharge: Date of : 40 Report #: [id number] Conclusion 1. Significant multivessel coronary artery disease characterized by the following: A 20% distal left main coronary narrowing B 40% mid with 60% distal LAD narrowing C prominent though nondominant circumflex with 30% proximal narrowing tandem 60% posterior division stenoses and 80% tubular first marginal with 90% proximal second marginal stenosis D dominant right coronary artery with 30% proximal narrowing and a widely patent mid vessel stent 2. Moderate impairment in global LV function, estimated ejection fraction 35% with an akinetic aneurysmal apical segment 3. Moderate systemic systolic hypertension with significant elevation of left ventricular end-diastolic pressure at rest Recommendations Cardiac Risk Reduction Program Aggressive Medical Therapy Medications Administered Clopidogrel Diagnostic Cath Approved by: Kyler Ludwig MD Date/Time: 03/13/2021 08:56:08 <ELECTRONICALLY SIGNED> By: Kyler Ludwig MD, [facility] 03/13/21 0857 0857 0857Kyler Ludwig MD, [facility] /INF
--- NOTE | 2021-03-13 09:39 | EKG ---
[place] [address] ELECTROCARDIOGRAM REPORT Name: ALISSON WARNER I Room: [address] ADM IN M.R.#: [id number] Admission: 03/12/21 Attend Phys: Shan Choudhury Discharge: Date of : 40 Date of Service: 03/12/211914 Report #: [id number] THIS REPORT FOR: //name// [facility] ED Test Date: 2021-03-12 Test Time: 19:15:32 Pat Name: ALISSON WARNER Department: Room: [facility] Gender: F Precision Lens Technician: MS : 1940 Requested By: Kyler Ludwig Order Number: [id number] Reading MD: Vinnie Larson Measurements Intervals [place] Rate: 92 P: 76 ND: 125 QRS: 1 QRSD: 101 T: 166 QT: 350 QTc: 433 Interpretive Statements Sinus rhythm Probable left atrial enlargement Low voltage, extremity leads Anteroseptal infarct, old Abnormal T, consider ischemia, diffuse leads ST elevation, consider inferior injury Compared to ECG 10/25/2020 04:11:05 Low QRS voltage now present T-wave abnormality now present Possible ischemia now present ST (T wave) deviation now present Myocardial infarct finding still present Electronically Signed On 03-13-2021 9:39:11 CDT by Vinnie Larson [email or web address] <ELECTRONICALLY SIGNED> By: Vinnie Larson MD, [facility] 03/13/2139 14 14 Vinnie Larson MD, [facility] /EPI
--- NOTE | 2021-03-13 09:43 | EKG ---
[place] [address] ELECTROCARDIOGRAM REPORT Name: ALISSON WARNER I Room: [address] IN M.R.#: [id number] Admission: 03/12/21 Attend Phys: Shan Choudhury Discharge: Date of : 40 Date of Service: 03/12/21 2243 Report #: [id number] THIS REPORT FOR: //name// [facility] Test Date: 2021-03-12 Test Time: 22:43:56 Pat Name: ALISSON WARNER Department: Room: [facility] Gender: F Electronic Engraver: JAMEY : 1940 Requested By: Jaymie Garcia Order Number: [id number] MD: Vinnie Larson Measurements Intervals [place] Rate: 73 P: 73 [place]: 127 QRS: 72 QRSD: 90 T: 191 QT: 384 QTc: 424 Interpretive Statements Sinus rhythm LVH with secondary repolarization abnormality Compared to ECG 10/25/2020 04:11:05 Left ventricular hypertrophy now present Early repolarization now present Myocardial infarct finding no longer present Electronically Signed On 03-13-2021 9:42:59 CDT by Vinnie Larson [email or web address] <ELECTRONICALLY SIGNED> By: Vinnie Larson MD, FAC 03/13/21 0942 2243 2243 Vinnie Larson MD, FAC /EPI
--- NOTE | 2021-03-13 09:46 | EKG ---
[place] [address] ELECTROCARDIOGRAM REPORT Name: ALANAALISSON Singh Room: [address] ADM IN M.R.#: [id number] Admission: 03/12/21 Attend Phys: Shna Choudhury Discharge: Date of : 40 Date of Service: 03/13/21 0851 Report #: [id number] THIS REPORT FOR: //name// [facility] Test Date: 2021-03-13 Test Time: 08:51:37 Pat Name: ALISSON WARNER Department: Room: [facility] Gender: F Gang Pusher: ANDREY : 1940 Requested By: Kyler Ludwig Order Number: [id number] Reading MD: Vinnie Larson Measurements Intervals [place] Rate: 81 P: 69 SD: 123 QRS: 71 QRSD: 92 T: 148 QT: 340 QTc: 395 Interpretive Statements Sinus rhythm Low voltage with right axis deviation Probable LVH with secondary repol abnrm Compared to ECG 03/12/2021 22:43:56 no change Electronically Signed On 03-13-2021 9:46:31 CDT by Vinnie Larson [email or web address] <ELECTRONICALLY SIGNED> By: Vinnie Larson MD, [facility] 03/13/21 0946 0851 0851 Vinnie Larson MD, [facility] /EPI
--- NOTE | 2021-03-13 16:20 | NUR ---
Patient admitted for NSTEMI and had cath with no stents yesterday. Spoke to rossi (Judy) over the phone to introduce role of CM. Patient currently lives alone in a trailer (mobile home). Stairs to enter home and a ramp. Patient was independent with ADLs prior to admission. No hx of DME, SNF/Rehab, dialysis, infusion therapy or BHS. PCP is [facility]. Hx of HH (unknown company name). Dejan provided a phone number for the [employer] company the patient used back in October after patient had a heart attack. Left vm ([phone]). Awaiting call back. Both patient and dtr want HH. [facility] made aware. If no return call then CM will seek other HH options. Tentative plan for patient to discharge tomorrow with HH.
[2021-03-14 00:46] VITALS: BP 142/72
[2021-03-14 04:32] VITALS: BP 136/67
[2021-03-14 05:00] VITALS: BP 151/75
--- NOTE | 2021-03-14 05:12 | NUR ---
RECEIVED REPORT FROM IN PROCESSING INSTRUCTOR JANETT. PT ARRIVED TO UNIT AT 0455 VIA WHEELCHAIR. FLIGHT OPERATIONS DISPATCH CLERK IN PLACE, TRACING SR. PT ORIENTED TO ROOM AND CALL LIGHT. DENIES PAIN. NO CONCERNS VOICED AT THIS TIME. CALL LIGHT WITHIN REACH. FALL EDUCATION GIVEN, PATIENT VERBALIZED UNDERSTANDING.
--- NOTE | 2021-03-14 07:25 | NUR ---
CHANGE OF SHIFT REPORT GIVEN PATIENT SEN AT BEDSIDE, IN BED RESTING ASSUMED PATIENT CARE
[2021-03-14 08:00] VITALS: BP 144/71
[2021-03-14] MEDS ORDERED: CLOPIDOGREL75 MG PO (08:28)
[2021-03-14 08:50] VITALS: BP 151/75
--- NOTE | 2021-03-14 08:54 | NUR ---
Pt discharging to home today, faxed HH orders and referral to [facility].
--- NOTE | 2021-03-14 14:00 | NUR ---
DC TO HOME DC INSTRUCTIONS GIVEN IV AND HEART MONIOTOR REMOVED PERSONAL BELONGIGNS RETURNED ASSISTED OUT VIA WC GOOD CONDITION TO WAITING CAR
--- NOTE | 2021-03-14 15:36 | D ---
[address] [address] DISCHARGE SUMMARY Name: ALISSON WARNER I Room: [address] M.R.#: [id number] Admission: 03/12/21 Attend Phys: Kyler Ludwig MD, Discharge: 03/14/21 Date of : 40 Report #: [id number] THIS REPORT FOR: cc: Toño Nation MD, Bruce D. MD Blick, David R. MD [facility] ~ cc: Toño Nation MD DATE OF DISCHARGE: 03/14/2021 DISCHARGE DIAGNOSES: 1. Acute non-ST elevation myocardial infarction. 2. Coronary artery disease. 3. Cardiomyopathy. CONSULTANTS: None. PROCEDURES: Left heart catheterization from the right femoral artery. HISTORY OF PRESENT ILLNESS: The patient is an 80-year-old single white female who came to the Emergency Room complaining of chest pain. The patient has a long and extensive past medical history. She had a previous myocardial infarction and has had stents placed in her LAD and ramus intermediate branch here at [facility]. She has a history of a cardiomyopathy. UNFORTUNATELY, IN THE PAST SHE HAS BEEN INTOLERANT OF MULTIPLE MEDICATIONS INCLUDING ASPIRIN, BRILINTA, CARVEDILOL, LOSARTAN, DILTIAZEM, HYDROCHLOROTHIAZIDE, METOPROLOL, ARBS, EFFIENT, MARYLU INHIBITORS, STATIN DRUGS AND ZETIA. She refused to take any medications. She actually had a stent placed into her right coronary artery in October of this year. She saw Dr. Robertson in November. She was admitted to [facility] on 03/12 with a complaint of chest pain. Her past medical history otherwise significant only for tonsillectomy. She does have a history of hyperlipidemia. No history of diabetes. On admission, she was taking no medications. PHYSICAL EXAMINATION: VITAL SIGNS: On admission, her blood pressure was 150/80, pulse was 80. HEENT: Mucous membranes moist. CHEST: Clear to auscultation. HEART: Regular rate and rhythm. ABDOMEN: Soft. EXTREMITIES: No edema. SKIN: Cool and dry. Her ECG on admission showed a sinus rhythm, evidence of previous anterior infarction. There were minimal inferior ST segment elevation noted, reciprocal lateral T-wave inversions. Her chest x-ray on admission, [place] [address] DISCHARGE SUMMARY Name: ALISSON WARNER I Room: [address]#: [id number] Admission: 03/12/21 Attend Phys: Kyler Ludwig MD, Discharge: 03/14/21 Date of : 40 Report #: [id number] size, clear lung swartz. LABORATORY DATA: On admission, potassium 3.7, creatinine 0.8, fasting blood glucose is 104. Her troponin on admission was 0.18. Cholesterol 160, triglyceride 53, HDL 52, LDL 98. Her white blood cell count 7.0, hemoglobin 13.1. HOSPITAL COURSE: The patient was taken urgently to the cardiac catheterization lab with a suggestion of inferior ST segment elevation. Urgent cardiac catheterization was performed by my partner, Dr. Kyler Ludwig at approximately 10:00 at night. It was performed from the right femoral artery. Results showed distal anterior apical akinesia with an ejection fraction of 30-35%. The stents in the LAD and ramus branch were widely patent. The stent in the right coronary was widely patent. She had a distal 60% narrowing of the circumflex artery. It was difficult to tell what the culprit artery was. It was therefore decided to treat her medically. No stents were placed. Fortunately, she had no further chest pain, shortness of breath or arrhythmias during her hospitalization. Follow up ECG showed a sinus rhythm with evidence of previous anterior infarction, lateral T-wave inversions. Additional workup during her hospitalization included a peak troponin of 1.97. Prior to be discharge, she was seen by cardiac rehabilitation. She was strongly recommended to take aspirin, but she refused. She refused any other medications. The only medication she agreed to at this time is clopidogrel. She was discharged to follow up with Dr. Nation for routine medical care. Her prognosis is guarded due to her severe ischemic cardiomyopathy. The patient refuses consideration for defibrillator. She is scheduled to return to see Dr. Robertson's nurse practitioner, Acacia Marino on 03/26 at 11:00 a.m. in the cardiology clinic. At the time of discharge, she is ambulating, had no hematoma in the right groin where a Mynx closure device was placed. At the time of discharge, she had a blood pressure of 130/70, pulse was 66, she was afebrile. She was told if she had recurrent chest pain, shortness of breath or syncope, she was to come to the Emergency Room. <ELECTRONICALLY SIGNED> By: Vinnie Larson MD, FACC 03/14/21 [id number] m Larson MD, FACC /nt
== END 2021-03-14 13:54 | disposition home health service (06) | DRG 280 ==
LOC: M.ERS 19:10 → M.TBA-CV 19:49 → M.CL 19:49 → M.TBA-CV 21:37 → M.ICU 21:37 → M.2W 03-14 05:09
PROVIDERS: Emergency Medicine; ADMIT Internal Medicine; ATTEND Internal Medicine
PROC: 4A023N7 Measurement of Cardiac Sampling and Pressure, Left Heart, Percutaneous Approach (ICD-10-PCS; principal; 2021-03-12)
PROC: B211YZZ Fluoroscopy of Multiple Coronary Arteries using Other Contrast (ICD-10-PCS; principal; 2021-03-12)
PROC: B41FYZZ Fluoroscopy of Right Lower Extremity Arteries using Other Contrast (ICD-10-PCS; principal; 2021-03-12)
PROC: B215YZZ Fluoroscopy of Left Heart using Other Contrast (ICD-10-PCS; principal; 2021-03-12)
DX: I21.4 Non-ST elevation (NSTEMI) myocardial infarction (principal); I50.23 Acute on chronic systolic (congestive) heart failure; I42.9 Cardiomyopathy, unspecified; M81.0 Age-related osteoporosis without current pathological fracture; I11.0 Hypertensive heart disease with heart failure; I25.10 Atherosclerotic heart disease of native coronary artery without angina pectoris; I24.9 Acute ischemic heart disease, unspecified; E78.5 Hyperlipidemia, unspecified; Z20.822 Contact with and (suspected) exposure to COVID-19; E78.00 Pure hypercholesterolemia, unspecified; T50.915A Adverse effect of multiple unspecified drugs, medicaments and biological substances, initial encounter; Y92.89 Other specified places as the place of occurrence of the external cause; Z88.6 Allergy status to analgesic agent; Z88.1 Allergy status to other antibiotic agents; Z88.2 Allergy status to sulfonamides; Z88.8 Allergy status to other drugs, medicaments and biological substances

== ENCOUNTER → 2021-06-27 | Outpatient (CLI) | payer MEDICARE, OTHER ==
[2021-06-27 14:04] LABS: HEMATOCRIT 40.4 % (37.0-47.0); HEMOGLOBIN 13.4 gm/dL (12.0-15.0); MCHC 33.1 g/dL (28.0-37.0); MCV 90.7 fL (80.0-100.0); MPV 8.4 fl. (7.2-11.1); RBC 4.46 mil/uL (4.20-5.00); RDW-CV 13.9 % (10.5-14.5); WBC 4.5 thou/uL (4.0-11.0)
[2021-06-27 14:26] LABS: ALBUMIN 3.7 g/dL (3.4-5.0); CALCIUM 9.1 mg/dL (8.5-10.1); CREATININE 1.1 mg/dL (0.6-1.3); POTASSIUM 4.3 mmol/L (3.5-5.1); TOTAL BILIRUBIN 0.4 mg/dL (<0.1-1.0); TOTAL PROTEIN 7.2 g/dL (6.4-8.2)
== END ==
LOC: M.LAB 13:42
PROVIDERS: ATTEND Registered Nurse
DX: I25.5 Ischemic cardiomyopathy (principal); I25.10 Atherosclerotic heart disease of native coronary artery without angina pectoris; R53.83 Other fatigue